=== PATIENT | male | born 1985 | race Two or more races ===

== ENCOUNTER 2019-09-24 16:08 | Emergency (ER) | payer OTHER ==
[~2019-09-24] VITALS: Ht 188 cm; Wt 97.7 kg
[2019-09-24 16:13] VITALS: BP 148/90
== END 2019-09-24 17:52 | disposition home or self-care (01) ==
LOC: ER 16:09
DX: M25.562 Pain in left knee (principal); X58.XXXA Exposure to other specified factors, initial encounter; Y93.89 Activity, other specified; Y92.89 Other specified places as the place of occurrence of the external cause; Y99.8 Other external cause status
CPT/HCPCS: 29505; 73564; 99284